=== PATIENT | male | born 1975 | race Caucasian/White ===

== ENCOUNTER 2018-12-09 00:26 | Emergency (ER) | payer OTHER ==
[~2018-12-09] VITALS: Ht 175.3 cm; Wt 86.3 kg
[~2018-12-09 00:26] MED LIST: APAP/HYDROCODON1 T13 PO; CIPROFLOXACIN250 M2 PO; COLACE100 MG PO; LAC PO
[2018-12-09 00:30] VITALS: Ht 175.3 cm; Wt 86.3 kg
[2018-12-09 03:05] VITALS: BP 120/79
== END 2018-12-09 03:05 | disposition home or self-care (01) ==
LOC: ED 00:26
DX: G56.01 Carpal tunnel syndrome, right upper limb (principal)
CPT/HCPCS: J1885; J2270